=== PATIENT | male | born 1945 | race African-American/Black ===

== ENCOUNTER 2018-10-17 21:51 | Emergency (ER) | payer OTHER ==
[~2018-10-17] VITALS: Ht 175.3 cm; Wt 93.4 kg
[2018-10-17 21:55] VITALS: BP 165/78
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
[2018-10-18] MEDS ORDERED: DICL100G18 TP (00:05)
[2018-10-18] MEDS ORDERED: CYCL10TA2 PO (00:05)
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
== END 2018-10-18 00:10 | disposition home or self-care (01) ==
LOC: ER 21:51
DX: S13.4XXA Sprain of ligaments of cervical spine, initial encounter (principal); M54.5 Low back pain; M25.511 Pain in right shoulder; M25.512 Pain in left shoulder; V43.52XA Car driver injured in collision with other type car in traffic accident, initial encounter; Y93.89 Activity, other specified; Y92.410 Unspecified street and highway as the place of occurrence of the external cause; Y99.8 Other external cause status; I10 Essential (primary) hypertension
CPT/HCPCS: 72040; 72100; 99283

== ENCOUNTER → 2018-12-23 | Outpatient (CLI) | payer OTHER ==
[~2018-12-23] MED LIST: CYCL10TA2 PO; DICL100G18 TP
--- NOTE | 2018-12-23 16:37 | KCIC ---
MRI left shoulder without contrast dated 12/23/2018 3:30 PM Indication: Shoulder pain decreased range of motion .. Comparison: No comparison is available. Technique: Routine multiplanar multisequence imaging performed. . Findings: Massive full-thickness tear of the rotator cuff involves the entire supraspinatus and the majority of the infraspinatus. Cuff defect measures at least 5 cm AP dimension and 4.9 cm transverse. The torn portion of the cuff is retracted to the level the joint. There is intermediate signal of the subscapularis with probable full-thickness involvement at its upper margin. The teres minor is intact. Moderate hypertrophic change of the AC joint. Mild undersurface spurring of the acromium. The acromium is type I morphology. Small subacromial/subdeltoid bursal effusion. Long head biceps tendon is of increased signal and ill-defined proximally. The tendon appears to be partially subluxed from the bicipital groove. The more distal extra articular portion is thickened and of increased signal Blunted morphology of the anterior and posterior labrum. No discrete labral tear. Mild degenerative change of the glenohumeral joint with thinning and surface irregularity of the articular cartilage. Moderate size glenohumeral joint effusion. No loose body. Suprascapular and spinoglenoid notches are clear. There is edema with moderate volume loss of the supraspinatus and infraspinatus muscles. IMPRESSION: 1. Massive full-thickness tear of the rotator cuff with retraction to the level of the joint. Please see above report for full details. 2. Severe tendinosis of the intra-articular biceps with partial subluxation from the bicipital groove. 3. Moderate AC joint arthropathy with undersurface spurring. There is a prominent subacromial/subdeltoid bursal fluid collection. 4. Mild degenerative arthrosis and chondromalacia the glenohumeral joint. Moderate glenohumeral joint effusion. Electronically signed by: Gael Jeffery MD (12/23/2018 4:34 PM) [id number]
== END | disposition home or self-care (01) ==
LOC: KCIC MRI 14:54
PROVIDERS: ATTEND Orthopaedic Surgery
DX: M75.102 Unspecified rotator cuff tear or rupture of left shoulder, not specified as traumatic (principal); M94.212 Chondromalacia, left shoulder; M19.012 Primary osteoarthritis, left shoulder; M12.812 Other specific arthropathies, not elsewhere classified, left shoulder; M25.412 Effusion, left shoulder
CPT/HCPCS: 73221